=== PATIENT | male | born 2000 | race Caucasian/White ===

== ENCOUNTER 2021-08-19 08:02 | Emergency (ER) | payer SELFPAY ==
[~2021-08-19] VITALS: Ht 167.6 cm; Wt 59.9 kg
[2021-08-19 08:05] VITALS: BP 116/43
--- NOTE | 2021-08-19 08:24 | NUR ---
DR BHATT EVALUATING PT AT THIS TIME
--- NOTE | 2021-08-19 08:41 | NUR ---
NO NURSING INTERVENTIONS PROVIDED
[2021-08-19 08:42] VITALS: BP 116/43
--- NOTE | 2021-08-19 08:42 | NUR ---
PATIENT BIB [facility] [employer] [facility]. PATIENT EXAMINED BY DR. BHATT. PATIENT MEDICALLY CLEARED AND RELEASED IN CUSTODY IN STABLE CONDITION. ORIGINAL PRE-BOOK FORM GIVEN TO OFFICER JOSSELIN.
== END 2021-08-19 08:42 ==
LOC: MED 08:02
DX: F10.10 Alcohol abuse, uncomplicated (principal); Z02.89 Encounter for other administrative examinations; V89.2XXA Person injured in unspecified motor-vehicle accident, traffic, initial encounter; Y93.89 Activity, other specified; Y92.89 Other specified places as the place of occurrence of the external cause; Y99.8 Other external cause status
CPT/HCPCS: 99283